=== PATIENT | female | born 1940 | race Caucasian/White ===

== ENCOUNTER 2017-07-13 10:00 | Outpatient (CLI) | payer MEDICARE, OTHER ==
[2017-07-13 13:03] LABS: CALCIUM 9.3 mg/dL (8.5-10.3); CREATININE 0.9 mg/dL (0.4-1.0); POTASSIUM 3.5 mmol/L (3.5-5.0)
== END 2017-07-13 10:01 | disposition home or self-care (01) ==
LOC: LAB.WCP 10:00
PROVIDERS: ATTEND Physician Assistant Medical
DX: R91.8 Other nonspecific abnormal finding of lung field (principal); Z51.81 Encounter for therapeutic drug level monitoring
CPT/HCPCS: 36415; 80048

== ENCOUNTER 2017-12-23 08:00 | Outpatient (CLI) | payer MEDICARE, OTHER | END 2017-12-23 08:01 | disposition home or self-care (01) | LOC: LAB.WCP 08:00 | PROVIDERS: ATTEND Family Medicine | DX: N39.0 Urinary tract infection, site not specified (principal) | CPT/HCPCS: 87086 ==

== ENCOUNTER 2018-01-14 08:00 | Outpatient (CLI) | payer MEDICARE, OTHER | END 2018-01-14 08:01 | LOC: LAB.R 08:00 | PROVIDERS: ATTEND Family Medicine | DX: N39.0 Urinary tract infection, site not specified (principal) | CPT/HCPCS: 87086 ==

== ENCOUNTER 2018-02-16 08:00 | Outpatient (CLI) | payer MEDICARE, OTHER | END 2018-02-16 08:01 | disposition home or self-care (01) | LOC: LAB.WCP 08:00 | PROVIDERS: ATTEND Family Medicine | DX: N39.0 Urinary tract infection, site not specified (principal) | CPT/HCPCS: 87086 ==

== ENCOUNTER 2019-01-31 09:26 | Outpatient (CLI) | payer MEDICARE, OTHER ==
[2019-01-31 12:20] LABS: ALBUMIN 4.2 g/dL (3.2-5.5); ALBUMIN/GLOBULIN RATIO 1.3 (1.0-2.2); ALKALINE PHOSPHATASE 69 IU/L (42-121); ALT ALANINE AMINOTRANSFERASE 20 IU/L (10-60); AST ASPARTATE AMINOTRANSFERASE 24 IU/L (10-42); BILIRUBIN,TOTAL 0.4 mg/dL (0.2-1.0); BUN - BLOOD UREA NITROGEN 15 mg/dL (6-20); CALCIUM 9.6 mg/dL (8.5-10.3); CARBON DIOXIDE - CO2 30 mmol/L (21-32); CHLORIDE 102 mmol/L (101-111); CHOL/HDL RATIO 3.3 (<4.4); CHOLESTEROL 227 mg/dL; CREATININE 0.8 mg/dL (0.4-1.0); GFR - MDRD 70 (>89); GLUCOSE 92 mg/dL (70-100); HDL CHOLESTEROL 69 mg/dL; LDL CHOLESTEROL,CALCULATED 120 mg/dL; LDL/HDL RATIO 1.7 (<4.4); SODIUM 141 mmol/L (135-145); TOTAL PROTEIN 7.5 g/dL (6.7-8.2); VLDL CHOLESTEROL 38 mg/dL
[2019-01-31 12:28] LABS: BASOPHILS # (AUTO) 0.1 10^3/uL (0.0-0.1); BASOPHILS % (AUTO) 2.5 %; EOSINOPHILS # (AUTO) 0.1 10^3/uL (0.0-0.7); EOSINOPHILS % (AUTO) 2.7 %; LYMPHOCYTES # (AUTO) 0.7 10^3/uL (1.5-3.5); LYMPHOCYTES % (AUTO) 12.5 %; MEAN CORPUSCULAR HEMOGLOBIN 30.6 pg (27.0-31.0); MEAN CORPUSCULAR HGB CONC 32.9 g/dL (32.0-36.0); MEAN CORPUSCULAR VOLUME 92.9 fL (81.0-99.0); MEAN PLATELET VOLUME 7.6 fL (7.9-10.8); MONOCYTES # (AUTO) 0.6 10^3/uL (0.0-1.0); MONOCYTES % (AUTO) 10.2 %; NEUTROPHILS % (AUTO) 72.1 %; PLT - PLATELET COUNT 316 10^3/uL (130-450); RED BLOOD COUNT 4.58 10^6/uL (4.20-5.40); RED CELL DISTRIBUTION WIDTH 13.1 % (12.0-15.0); WHITE BLOOD COUNT 5.6 x10^3/uL (4.8-10.8)
[2019-01-31 12:30] LABS: THYROID STIMULATING HORMONE 3.65 uIU/mL (0.34-5.60)
== END 2019-01-31 09:27 | disposition home or self-care (01) ==
LOC: LAB.WCP 09:26
PROVIDERS: ATTEND Family Medicine
DX: I10 Essential (primary) hypertension (principal); E53.8 Deficiency of other specified B group vitamins; Z51.81 Encounter for therapeutic drug level monitoring
CPT/HCPCS: 36415; 80053; 80061; 82607; 83721; 84443; 85025

== ENCOUNTER 2020-02-09 08:00 | Outpatient (CLI) | payer MEDICARE, OTHER ==
[2020-02-09 13:52] LABS: BASOPHILS # (AUTO) 0.1 10^3/uL (0.0-0.1); BASOPHILS % (AUTO) 1.2 %; EOSINOPHILS # (AUTO) 0.2 10^3/uL (0.0-0.7); EOSINOPHILS % (AUTO) 4.1 %; HGB - HEMOGLOBIN 13.2 g/dL (12.0-16.0); LYMPHOCYTES # (AUTO) 0.7 10^3/uL (1.5-3.5); LYMPHOCYTES % (AUTO) 13.8 %; MEAN CORPUSCULAR HEMOGLOBIN 29.5 pg (27.0-31.0); MEAN CORPUSCULAR HGB CONC 31.6 g/dL (32.0-36.0); MEAN CORPUSCULAR VOLUME 93.3 fL (81.0-99.0); MEAN PLATELET VOLUME 9.4 fL (7.9-10.8); MONOCYTES # (AUTO) 0.6 10^3/uL (0.0-1.0); MONOCYTES % (AUTO) 11.8 %; NEUTROPHILS # (AUTO) 3.4 10^3/uL (1.5-6.6); NEUTROPHILS % (AUTO) 68.7 %; PLT - PLATELET COUNT 287 10^3/uL (130-450); RED BLOOD COUNT 4.48 10^6/uL (4.20-5.40); RED CELL DISTRIBUTION WIDTH 13.5 % (12.0-15.0); WHITE BLOOD COUNT 4.9 x10^3/uL (4.8-10.8)
[2020-02-09 14:07] LABS: % IRON SATURATION 29 % (20-50); ALBUMIN 4.3 g/dL (3.2-5.5); ALBUMIN/GLOBULIN RATIO 1.3 (1.0-2.2); ALKALINE PHOSPHATASE 74 IU/L (42-121); ALT ALANINE AMINOTRANSFERASE 17 IU/L (10-60); AST ASPARTATE AMINOTRANSFERASE 25 IU/L (10-42); BILIRUBIN,TOTAL 0.7 mg/dL (0.2-1.0); BUN - BLOOD UREA NITROGEN 18 mg/dL (6-20); CALCIUM 9.7 mg/dL (8.5-10.3); CARBON DIOXIDE - CO2 26 mmol/L (21-32); CHLORIDE 104 mmol/L (101-111); CHOL/HDL RATIO 3.1 (<4.4); CHOLESTEROL 200 mg/dL; CREATININE 0.7 mg/dL (0.4-1.0); GLUCOSE 89 mg/dL (70-100); HDL CHOLESTEROL 64 mg/dL; IRON 104 ug/dL (28-170); LDL CHOLESTEROL,CALCULATED 106 mg/dL; LDL/HDL RATIO 1.7 (<4.4); SODIUM 139 mmol/L (135-145); TOTAL IRON BINDING CAPACITY 356 ug/dL (250-450); TOTAL PROTEIN 7.6 g/dL (6.7-8.2); TRANSFERRIN 254 mg/dL (192-382); VLDL CHOLESTEROL 30 mg/dL
[2020-02-09 14:08] LABS: FERRITIN 66.8 ng/mL (11.0-306.8)
== END 2020-02-09 23:59 | disposition home or self-care (01) ==
LOC: LAB.WCP 08:00
PROVIDERS: ATTEND Family Medicine
DX: I47.1 Supraventricular tachycardia (principal); R55 Syncope and collapse; D50.9 Iron deficiency anemia, unspecified; Z87.19 Personal history of other diseases of the digestive system; I10 Essential (primary) hypertension; E53.8 Deficiency of other specified B group vitamins
CPT/HCPCS: 36415; 80053; 80061; 82607; 82728; 83540; 83721; 84443; 84466; 85025

== ENCOUNTER 2020-02-24 15:34 | Outpatient (CLI) | payer MEDICARE, OTHER ==
--- NOTE | 2020-02-24 17:10 | Ultrasound Report ---
PROCEDURE: Head or Neck Soft Tissue INDICATIONS: THYROID NODULE TECHNIQUE: Real-time scanning was performed of the thyroid gland, with image documentation. COMPARISON: None FINDINGS: Right: Thyroid lobe measures 4.3 x 2.3 x 1.8 cm, and is homogeneous in echotexture. Left: Thyroid lobe measures 4.9 x 2.8 x 2.9 cm, and is homogenous in echotexture. Isthmus: 2 mm thick. Nodule number: One Location: Right lateral lobe Size: 1.1 x 0.5 x 1.1 cm. Composition: Partially cystic Echogenicity: Hypoechoic Shape: wider than tall. Margins: Irregular Echogenic foci: None Total points: 2 ACR TI-RADS category: 2 Nodule number: Two Location: Left lobe Size: 3.9 x 2.4 x 2.4 cm. Composition: Solid Echogenicity: Hypoechoic Shape: wider than tall. Margins: Smooth Echogenic foci: Punctate Total points: 7 ACR TI-RADS category: 5 Nodule number: 3 Location: Isthmus Size: 0.6 x 0.2 x 0.6 cm. Composition: Solid Echogenicity: Hypoechoic Shape: wider than tall. Margins: Smooth Echogenic foci: Punctate Total points: 7 ACR TI-RADS category: 5 IMPRESSION: 1. Nodule two meets criteria for fine-needle aspiration. 2. Nodule three meets criteria for interval follow-up every year for 5 years. 3. Nodule one no further follow-up is recommended. ACR TI-RADS definitions and recommendations: TI-RADS 1 (benign): 0 points. FNA not needed. TI-RADS 2 (not suspicious): 2 points. FNA not needed. TI-RADS 3 (mildly suspicious): 3 points. ? FNA if 2.5 cm or larger, follow up if 1.5 cm or larger (at 1, 3, and 5 years). TI-RADS 4 (moderately suspicious): 4-6 points. ? FNA if 1.5 cm or larger, follow up if 1 cm or larger (at 1, 2, 3, and 5 years). TI-RADS 5 (highly suspicious): 7 points or more. ? FNA if 1 cm or larger, follow up if 0.5 cm or larger (every year for 5 years). Reviewed by: Jaymie Milligan MD on 02/24/2020 5:08 PM PDT Approved by: Jaymie Milligan MD on 02/24/2020 5:08 PM PDT Station ID: [id number]
== END 2020-02-24 15:35 | disposition home or self-care (01) ==
LOC: DI 15:34
PROVIDERS: ATTEND Family Medicine
DX: E04.2 Nontoxic multinodular goiter (principal)
CPT/HCPCS: 76536

== ENCOUNTER 2020-06-13 14:48 | Outpatient (CLI) | payer MEDICARE, OTHER ==
[2020-06-13 19:14] LABS: THYROID STIMULATING HORMONE 45.37 uIU/mL (0.34-5.60)
[2020-06-13 19:15] LABS: FREE T3 2.08 pg/mL (2.5-3.9)
[2020-06-13 19:19] LABS: FREE T4 (FREE THYROXINE) 0.49 ng/dL (0.58-1.64)
== END 2020-06-13 23:59 | disposition home or self-care (01) ==
LOC: LAB.WCP 14:48
PROVIDERS: ATTEND Family Medicine
DX: C73 Malignant neoplasm of thyroid gland (principal)
CPT/HCPCS: 36415; 84439; 84443; 84481

== ENCOUNTER 2020-07-19 08:00 | Outpatient (CLI) | payer MEDICARE, OTHER ==
[2020-07-19 19:18] LABS: FREE T3 1.97 pg/mL (2.5-3.9)
[2020-07-19 19:19] LABS: FREE T4 (FREE THYROXINE) 0.69 ng/dL (0.58-1.64)
== END 2020-07-19 23:59 | disposition home or self-care (01) ==
LOC: LAB.WCP 08:00
PROVIDERS: ATTEND Family Medicine
DX: E89.0 Postprocedural hypothyroidism (principal)
CPT/HCPCS: 36415; 84439; 84481

== ENCOUNTER → 2020-11-08 | Outpatient (CLI) | payer MEDICARE, OTHER ==
[2020-11-08 13:49] LABS: THYROID STIMULATING HORMONE 49.93 uIU/mL (0.34-5.60)
[2020-11-08 13:51] LABS: FREE T3 2.84 pg/mL (2.5-3.9)
[2020-11-08 13:52] LABS: FREE T4 (FREE THYROXINE) 0.65 ng/dL (0.58-1.64)
== END ==
LOC: LAB.WCP 08:00
PROVIDERS: ATTEND Family Medicine
DX: E89.0 Postprocedural hypothyroidism (principal)
CPT/HCPCS: 36415; 84439; 84443; 84481

== ENCOUNTER 2020-11-29 12:24 | Outpatient (CLI) | payer MEDICARE, OTHER ==
--- NOTE | 2020-11-29 15:35 | XRAY Report ---
PROCEDURE: Hip w/Pelvis 1V RT INDICATIONS: RT HIP PAIN TECHNIQUE: AP pelvis with lateral view(s) of the bilateral hip(s). COMPARISON: None. FINDINGS: Bones: No fractures or dislocations. Pelvic ring appears intact. No suspicious bony lesions. 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 Minimal periarticular osteophytes. No erosions. Soft tissues: The visualized bowel gas pattern is normal. No suspicious soft tissue calcifications. 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 Reviewed by: Jaymie Milligan MD on 11/29/2020 3:34 PM PDT Approved by: Jaymie Milligan MD on 11/29/2020 3:34 PM PDT Station ID: [id number]
== END 2020-11-29 12:25 | disposition home or self-care (01) ==
LOC: DI.N 12:24
PROVIDERS: ATTEND Family Medicine
DX: M25.551 Pain in right hip (principal); M16.0 Bilateral primary osteoarthritis of hip

== ENCOUNTER 2021-03-11 08:52 | Emergency (ER) | payer MEDICARE, OTHER ==
[2021-03-11] MEDS ORDERED: SILVER NITRATE APPLICATOR TOP STA (09:11)
[2021-03-11] MEDS ORDERED: OXYMETAZOLINE HCL 100 SPRAYS BOTTLE NAS STA (09:11)
[2021-03-11] MEDS ORDERED: BACITRACIN ZINC OINT 1 PACKET TOP STA (10:03)
--- NOTE | 2021-03-11 11:33 | ED Physician Documentation ---
History of Present Illness - Stated complaint Stated Complaint: NOSE BLEED - Chief complaint Chief Complaint: Heent - Additonal information Additional information: 80-year-old woman not on blood thinners presents with spontaneous epistaxis this morning and passage of multiple blood clots from the nose. She was seen at urgent care but they referred her in because they do not have the appropriate equipment. Patient's nosebleed has stopped at this time. Denies traumatic injury, instrumentation, or nose picking. Review of Systems Nose: reports: Epistaxis PD PAST MEDICAL HISTORY - Past Medical History Cardiovascular: Hypertension - Past Surgical History General: Bowel surgery - Present Medications Home Medications: Ambulatory Orders Medication Instructions Recorded Confirmed Levothyroxine [Synthroid] 1 tab PO DAILY 03/11/21 03/11/21 Losartan Potassium 1 tab PO DAILY 03/11/21 03/11/21 Metoprolol Succinate [Toprol Xl] 1 tab PO BID 03/11/21 03/11/21 Tiotropium [place] [Spiriva] 1 - 2 puffs PO DAILY 03/11/21 03/11/21 - Allergies Allergies/Adverse Reactions: Allergies Allergy/AdvReac Type Severity Reaction Status Date / Time No Known Drug Allergies Allergy Verified 03/11/21 09:07 - Social History Does the pt smoke?: No Smoking Status: Never smoker Does the pt drink ETOH?: Yes PD ED PE NORMAL - Vitals Vital signs reviewed: Yes - General General: Alert and oriented X 3, No acute distress, Well developed/nourished - HEENT HEENT: Atraumatic, PERRL, EOMI, Other (Left nare with large clot to medial aspect. Right nare clear.) - Derm Derm: Normal color, Warm and dry - Neuro Neuro: Alert and oriented X 3 - Psych Psych: Normal mood, Normal affect Results - Vitals Vitals: Vital Signs - 24 hr 03/11/21 03/11/21 03/11/21 09:02 09:26 10:34 Temperature 36.0 C L Heart Rate 90 77 Respiratory 16 18 Rate Blood Pressure 170/103 H 170/103 H 146/121 H O2 Saturation 92 94 03/11/21 03/11/21 11:08 11:39 Temperature 36.6 C Heart Rate 71 Respiratory 16 18 Rate Blood Pressure 154/94 H 174/96 H O2 Saturation 93 Oxygen O2 Source Room air Procedures - General procedure General procedure: Silver nitrate cautery applied to L nare after oxymetazoline spray. Patient had 1 area of anterior bleeding that was stopped. EBL 2 mL. Patient tolerated well. Bacitracin applied. PD MEDICAL DECISION MAKING - ED course ED course: 80-year-old woman presented with epistaxis that resolved after oxymetazoline spray and silver nitrate cautery. Return precautions given. She will follow up with her primary doctor. Departure - Departure Disposition: 01 Home, Self Care Clinical Impression: Epistaxis Condition: Good Instructions: Nosebleed Comments: You are seen in the emergency department for nosebleed. We applied silver nitrate cautery and the bleeding stopped. Return to the emergency department if it recurs. Follow-up with your primary doctor. Discharge Date/Time: 03/11/21 11:41
[2021-03-11 11:40] VITALS: BP 174/96
== END 2021-03-11 11:41 | disposition home or self-care (01) ==
LOC: ED 08:52
DX: R04.0 Epistaxis (principal); I10 Essential (primary) hypertension
CPT/HCPCS: 30901; 99281; 99282; A9270

== ENCOUNTER 2021-04-07 10:47 | Emergency (ER) | payer MEDICARE, OTHER ==
[2021-04-07 11:01] VITALS: BP 157/102
[2021-04-07] MEDS ORDERED: TRANEXAMIC ACID 1,000 MG/10 ML VIAL NAS STA (12:18)
[2021-04-07] MEDS ORDERED: OXYMETAZOLINE HCL 100 SPRAYS BOTTLE NAS STA (12:18)
--- NOTE | 2021-04-07 12:28 | ED Physician Documentation ---
History of Present Illness - Stated complaint Stated Complaint: BLOODY NOSE - Chief complaint Chief Complaint: Heent - History obtained from History obtained from: Patient - History of Present Illness Timing: Yesterday Pain level max: 0 Pain level now: 0 - Additonal information Additional information: 80-year-old female presents to the emergency department complaining of intermittent nosebleeds over the past 6 months. She has had blood work done without any suspicious findings. She states that this nosebleed started today, left nare. She states she did have a episode of epistaxis cauterized a few months ago. Has not followed up with ENT. She does have a history of hypertension, has not changed her medications recently. No trauma. Better with pressure, nothing makes it worse. Review of Systems Constitutional: denies: Fever, Chills Respiratory: denies: Cough GI: denies: Nausea, Vomiting Skin: denies: Rash Musculoskeletal: denies: Neck pain, Back pain Neurologic: denies: Headache PD PAST MEDICAL HISTORY - Past Medical History Cardiovascular: Hypertension - Past Surgical History General: Bowel surgery - Present Medications Home Medications: Ambulatory Orders Medication Instructions Recorded Confirmed Levothyroxine [Synthroid] 1 tab PO DAILY 03/11/21 03/11/21 Losartan Potassium 1 tab PO DAILY 03/11/21 03/11/21 Metoprolol Succinate [Toprol Xl] 1 tab PO BID 03/11/21 03/11/21 Tiotropium [place] [Spiriva] 1 - 2 puffs PO DAILY 03/11/21 03/11/21 Oxymetazoline HCl [Afrin] 1 spray NS BID PRN #15 ml 04/07/21 - Allergies Allergies/Adverse Reactions: Allergies Allergy/AdvReac Type Severity Reaction Status Date / Time No Known Drug Allergies Allergy Verified 04/07/21 11:01 - Social History Does the pt smoke?: No Smoking Status: Never smoker Does the pt drink ETOH?: Yes PD ED PE NORMAL - Vitals Vital signs reviewed: Yes - General General: Alert and oriented X 3, No acute distress - HEENT HEENT: Moist mucous membranes, Other (L nare - mild dried blood. no visualized bleeding. ) - Neck Neck: Supple, no meningeal sign - Cardiac Cardiac: RRR - Respiratory Respiratory: No respiratory distress, Clear bilaterally - Derm Derm: Warm and dry - Neuro Neuro: Alert and oriented X 3 Results - Vitals Vitals: Vital Signs - 24 hr 04/07/21 10:55 Temperature 36.6 C Heart Rate 84 Respiratory 18 Rate Blood Pressure 157/102 H O2 Saturation 96 Oxygen O2 Source Room air Procedures - Epistaxis Site: Left Preparation: Clots removed, Afrin, Other (txa) Other: Observed - no bleeding, Pt tolerated well PD MEDICAL DECISION MAKING - ED course Complexity details: considered differential, d/w patient ED course: 80-year-old female with epistaxis today. Resolved in the emergency department. Afrin instilled in the nare as well as TXA. No visible source of bleeding to cauterize. No indication for packing at this time. We will have her follow-up with ENT as she has had recurrent epistaxis. Patient counseled regarding signs and symptoms for which I believe and urgent re-evaluation would be necessary. Patient with good understanding of and agreement to plan and is comfortable going home at this time This document was made in part using voice recognition software. While efforts are made to proofread this document, sound alike and grammatical errors may occur. Departure - Departure Disposition: 01 Home, Self Care Clinical Impression: Epistaxis Condition: Good Instructions: ED Nosebleed Follow-Up: Erick Cooper DO [Primary Care Provider] - [facility] [Provider Group] Prescriptions: Oxymetazoline HCl [Afrin] 1 spray NS BID PRN #15 ml PRN Reason: epsitaxis Comments: Please follow-up with ENT for further evaluation. Make sure your blood pressure is well controlled. You can try applying a small amount of Vaseline to the inside of each nostril as well. If the bleeding recurs, apply the clamp for 15 minutes before rechecking. Discharge Date/Time: 04/07/21 13:15
== END 2021-04-07 13:15 | disposition home or self-care (01) ==
LOC: ED 10:47
DX: R04.0 Epistaxis (principal); I10 Essential (primary) hypertension
CPT/HCPCS: 30901; 99282; 99284; A9270

== ENCOUNTER 2021-05-13 08:00 | Outpatient (CLI) | payer MEDICARE, OTHER ==
[2021-05-13 17:58] LABS: BASOPHILS # (AUTO) 0.1 10^3/uL (0.0-0.1); BASOPHILS % (AUTO) 1.2 %; EOSINOPHILS # (AUTO) 0.1 10^3/uL (0.0-0.7); EOSINOPHILS % (AUTO) 2.3 %; HCT - HEMATOCRIT 41.7 % (37.0-47.0); HGB - HEMOGLOBIN 13.5 g/dL (12.0-16.0); LYMPHOCYTES # (AUTO) 0.7 10^3/uL (1.5-3.5); LYMPHOCYTES % (AUTO) 11.3 %; MEAN CORPUSCULAR HEMOGLOBIN 32.1 pg (27.0-31.0); MEAN CORPUSCULAR HGB CONC 32.4 g/dL (32.0-36.0); MEAN CORPUSCULAR VOLUME 99.3 fL (81.0-99.0); MEAN PLATELET VOLUME 9.3 fL (7.9-10.8); MONOCYTES # (AUTO) 0.5 10^3/uL (0.0-1.0); MONOCYTES % (AUTO) 9.1 %; NEUTROPHILS # (AUTO) 4.3 10^3/uL (1.5-6.6); NEUTROPHILS % (AUTO) 75.6 %; PLT - PLATELET COUNT 308 10^3/uL (130-450); RED CELL DISTRIBUTION WIDTH 13.1 % (12.0-15.0); WHITE BLOOD COUNT 5.7 x10^3/uL (4.8-10.8)
[2021-05-13 18:26] LABS: ALBUMIN 4.3 g/dL (3.2-5.5); ALBUMIN/GLOBULIN RATIO 1.3 (1.0-2.2); BILIRUBIN,TOTAL 0.6 mg/dL (0.2-1.0); CALCIUM 9.3 mg/dL (8.5-10.3); CREATININE 0.9 mg/dL (0.4-1.0); POTASSIUM 4.3 mmol/L (3.5-5.0); TOTAL PROTEIN 7.6 g/dL (6.7-8.2)
[2021-05-13 18:27] LABS: THYROID STIMULATING HORMONE 23.13 uIU/mL (0.34-5.60)
[2021-05-13 18:29] LABS: FREE T3 2.62 pg/mL (2.5-3.9); FREE T4 (FREE THYROXINE) 0.77 ng/dL (0.58-1.64)
[2021-05-15 15:11] LABS: THYROID PEROXIDASE ANTIBODIES 1 IU/mL (<9)
== END 2021-05-13 23:59 | disposition home or self-care (01) ==
LOC: LAB.WCP 08:00
PROVIDERS: ATTEND Family Medicine
DX: I10 Essential (primary) hypertension (principal); E53.8 Deficiency of other specified B group vitamins; C73 Malignant neoplasm of thyroid gland
CPT/HCPCS: 36415; 80053; 82607; 84439; 84443; 84481; 85025; 86376; 86800

== ENCOUNTER 2021-08-12 08:00 | Outpatient (CLI) | payer MEDICARE, OTHER ==
[2021-08-12 12:27] LABS: ALBUMIN/GLOBULIN RATIO 1.3 (1.0-2.2); BILIRUBIN,TOTAL 0.7 mg/dL (0.2-1.0); CALCIUM 9.4 mg/dL (8.5-10.3); CREATININE 0.8 mg/dL (0.4-1.0); POTASSIUM 4.3 mmol/L (3.5-5.0); TOTAL PROTEIN 7.1 g/dL (6.7-8.2)
[2021-08-12 12:35] LABS: THYROID STIMULATING HORMONE 14.33 uIU/mL (0.34-5.60)
[2021-08-12 13:11] LABS: FREE T4 (FREE THYROXINE) 1.02 ng/dL (0.58-1.64)
== END 2021-08-12 23:59 ==
LOC: LAB.WCP 08:00
PROVIDERS: ATTEND Family Medicine
DX: C73 Malignant neoplasm of thyroid gland (principal); I10 Essential (primary) hypertension
CPT/HCPCS: 36415; 80053; 84439; 84443

== ENCOUNTER 2022-06-16 09:19 | Outpatient (CLI) | payer MEDICARE, OTHER ==
[2022-06-16 12:32] LABS: BASOPHILS # (AUTO) 0.1 10^3/uL (0.0-0.1); BASOPHILS % (AUTO) 1.3 %; EOSINOPHILS # (AUTO) 0.2 10^3/uL (0.0-0.7); EOSINOPHILS % (AUTO) 2.3 %; HCT - HEMATOCRIT 42.9 % (37.0-47.0); HGB - HEMOGLOBIN 14.4 g/dL (12.0-16.0); LYMPHOCYTES # (AUTO) 0.7 10^3/uL (1.5-3.5); MEAN CORPUSCULAR HGB CONC 33.6 g/dL (32.0-36.0); MEAN CORPUSCULAR VOLUME 92.3 fL (81.0-99.0); MEAN PLATELET VOLUME 9.3 fL (7.9-10.8); MONOCYTES # (AUTO) 0.8 10^3/uL (0.0-1.0); NEUTROPHILS # (AUTO) 6.2 10^3/uL (1.5-6.6); NEUTROPHILS % (AUTO) 77.1 %; PLT - PLATELET COUNT 372 10^3/uL (130-450); RED BLOOD COUNT 4.65 10^6/uL (4.20-5.40); RED CELL DISTRIBUTION WIDTH 12.5 % (12.0-15.0)
[2022-06-16 13:23] LABS: THYROID STIMULATING HORMONE 1.12 uIU/mL (0.34-5.60)
[2022-06-16 13:25] LABS: ALBUMIN 4.1 g/dL (3.2-5.5); ALBUMIN/GLOBULIN RATIO 1.2 (1.0-2.2); ALKALINE PHOSPHATASE 64 IU/L (42-121); ALT ALANINE AMINOTRANSFERASE 19 IU/L (10-60); AST ASPARTATE AMINOTRANSFERASE 22 IU/L (10-42); BILIRUBIN,TOTAL 0.5 mg/dL (0.2-1.0); BUN - BLOOD UREA NITROGEN 12 mg/dL (6-20); CARBON DIOXIDE - CO2 29 mmol/L (21-32); CHLORIDE 99 mmol/L (101-111); CHOL/HDL RATIO 2.8 (<4.4); CHOLESTEROL 178 mg/dL; CREATININE 0.9 mg/dL (0.4-1.0); GFR - MDRD 60 (>89); GLUCOSE 98 mg/dL (70-100); HDL CHOLESTEROL 64 mg/dL; LDL CHOLESTEROL,CALCULATED 82 mg/dL; LDL/HDL RATIO 1.3 (<4.4); POTASSIUM 4.1 mmol/L (3.5-5.0); SODIUM 139 mmol/L (135-145); TOTAL PROTEIN 7.4 g/dL (6.7-8.2); TRIGLYCERIDES 160 mg/dL; VLDL CHOLESTEROL 32 mg/dL
[2022-06-16 13:26] LABS: FREE T4 (FREE THYROXINE) 1.2 ng/dL (0.58-1.64)
== END 2022-06-16 09:20 | disposition home or self-care (01) ==
LOC: LAB.N 09:19
PROVIDERS: ATTEND Internal Medicine
DX: I10 Essential (primary) hypertension (principal); E53.8 Deficiency of other specified B group vitamins; C73 Malignant neoplasm of thyroid gland
CPT/HCPCS: 36415; 80053; 80061; 82607; 83721; 84439; 84443; 85025; 86800

== ENCOUNTER 2022-08-22 10:16 | Outpatient (CLI) | payer MEDICARE, OTHER ==
[2022-08-22 11:05] LABS: THYROID STIMULATING HORMONE 2.23 uIU/mL (0.34-5.60)
[2022-08-22 11:07] LABS: FREE T4 (FREE THYROXINE) 1.11 ng/dL (0.58-1.64)
== END 2022-08-22 10:17 | disposition home or self-care (01) ==
LOC: LAB 10:16
PROVIDERS: ATTEND Internal Medicine
DX: C73 Malignant neoplasm of thyroid gland (principal)
CPT/HCPCS: 36415; 81599; 84432; 84439; 84443; 86800

== ENCOUNTER 2022-12-03 08:37 | Outpatient (CLI) | payer MEDICARE, OTHER ==
[2022-12-03 09:00] LABS: BASOPHILS # (AUTO) 0.1 10^3/uL (0.0-0.1); BASOPHILS % (AUTO) 1.3 %; EOSINOPHILS # (AUTO) 0.3 10^3/uL (0.0-0.7); EOSINOPHILS % (AUTO) 5.4 %; HGB - HEMOGLOBIN 14.3 g/dL (12.0-16.0); LYMPHOCYTES # (AUTO) 0.8 10^3/uL (1.5-3.5); LYMPHOCYTES % (AUTO) 12.8 %; MEAN CORPUSCULAR HEMOGLOBIN 30.2 pg (27.0-31.0); MEAN CORPUSCULAR HGB CONC 33.3 g/dL (32.0-36.0); MEAN CORPUSCULAR VOLUME 90.7 fL (81.0-99.0); MONOCYTES # (AUTO) 0.6 10^3/uL (0.0-1.0); MONOCYTES % (AUTO) 10.1 %; NEUTROPHILS # (AUTO) 4.4 10^3/uL (1.5-6.6); NEUTROPHILS % (AUTO) 70.1 %; PLT - PLATELET COUNT 306 10^3/uL (130-450); RED BLOOD COUNT 4.74 10^6/uL (4.20-5.40); RED CELL DISTRIBUTION WIDTH 12.3 % (12.0-15.0); WHITE BLOOD COUNT 6.3 x10^3/uL (4.8-10.8)
[2022-12-03 09:15] LABS: CALCIUM 9.3 mg/dL (8.5-10.3); CREATININE 0.7 mg/dL (0.4-1.0); POTASSIUM 3.4 mmol/L (3.5-5.0)
[2022-12-03 09:37] LABS: THYROID STIMULATING HORMONE 0.22 uIU/mL (0.34-5.60)
[2022-12-03 09:40] LABS: FREE T4 (FREE THYROXINE) 1.66 ng/dL (0.58-1.64)
== END 2022-12-03 08:38 | disposition home or self-care (01) ==
LOC: LAB 08:37
PROVIDERS: ATTEND Internal Medicine
DX: C73 Malignant neoplasm of thyroid gland (principal); I10 Essential (primary) hypertension; J44.9 Chronic obstructive pulmonary disease, unspecified; R91.8 Other nonspecific abnormal finding of lung field
CPT/HCPCS: 36415; 80048; 81599; 84432; 84439; 84443; 85025; 86800

== ENCOUNTER 2022-12-24 09:23 | Outpatient (CLI) | payer MEDICARE, OTHER ==
[2022-12-24] MEDS ORDERED: ALBUTEROL 1 PUFF INH STA (17:16)
== END 2022-12-24 09:24 | disposition home or self-care (01) ==
LOC: RT 09:23
PROVIDERS: ATTEND Family Medicine
DX: J44.9 Chronic obstructive pulmonary disease, unspecified (principal); R91.8 Other nonspecific abnormal finding of lung field
CPT/HCPCS: 94060; 94729

== ENCOUNTER 2023-05-15 08:22 | Outpatient (CLI) | payer MEDICARE, OTHER ==
[2023-05-15 08:39] LABS: BASOPHILS # (AUTO) 0.1 10^3/uL (0.0-0.1); BASOPHILS % (AUTO) 1.4 %; EOSINOPHILS # (AUTO) 0.2 10^3/uL (0.0-0.7); EOSINOPHILS % (AUTO) 2.9 %; HCT - HEMATOCRIT 42.6 % (37.0-47.0); HGB - HEMOGLOBIN 14.1 g/dL (12.0-16.0); LYMPHOCYTES # (AUTO) 0.8 10^3/uL (1.5-3.5); LYMPHOCYTES % (AUTO) 10.8 %; MEAN CORPUSCULAR HEMOGLOBIN 30.4 pg (27.0-31.0); MEAN CORPUSCULAR HGB CONC 33.1 g/dL (32.0-36.0); MEAN CORPUSCULAR VOLUME 91.8 fL (81.0-99.0); MEAN PLATELET VOLUME 8.6 fL (7.9-10.8); MONOCYTES # (AUTO) 0.6 10^3/uL (0.0-1.0); MONOCYTES % (AUTO) 8.4 %; NEUTROPHILS # (AUTO) 5.6 10^3/uL (1.5-6.6); NEUTROPHILS % (AUTO) 76.2 %; PLT - PLATELET COUNT 347 10^3/uL (130-450); RED BLOOD COUNT 4.64 10^6/uL (4.20-5.40); RED CELL DISTRIBUTION WIDTH 12.8 % (12.0-15.0); WHITE BLOOD COUNT 7.3 x10^3/uL (4.8-10.8)
[2023-05-15 09:03] LABS: ALBUMIN 4.1 g/dL (3.2-5.5); ALBUMIN/GLOBULIN RATIO 1.3 (1.0-2.2); BILIRUBIN,TOTAL 0.4 mg/dL (0.2-1.0); CALCIUM 9.9 mg/dL (8.5-10.3); CREATININE 0.7 mg/dL (0.6-1.3); POTASSIUM 3.9 mmol/L (3.5-4.5); TOTAL PROTEIN 7.2 g/dL (6.4-8.9)
[2023-05-15 09:10] LABS: THYROID STIMULATING HORMONE 0.11 uIU/mL (0.34-5.60)
[2023-05-17 14:08] LABS: THYROGLOBULIN ANTIBODY 1076.2 IU/mL (0.0-0.9)
== END 2023-05-15 08:23 | disposition home or self-care (01) ==
LOC: LAB 08:22
PROVIDERS: ATTEND Internal Medicine
DX: A31.0 Pulmonary mycobacterial infection (principal); J47.9 Bronchiectasis, uncomplicated; C73 Malignant neoplasm of thyroid gland; I10 Essential (primary) hypertension
CPT/HCPCS: 36415; 80053; 82248; 84443; 84481; 85025; 86376; 86800

== ENCOUNTER 2023-07-08 08:54 | Outpatient (CLI) | payer MEDICARE, OTHER ==
[2023-07-08 09:32] LABS: ALBUMIN 4.2 g/dL (3.2-5.5); ALKALINE PHOSPHATASE 75 IU/L (42-121); ALT ALANINE AMINOTRANSFERASE 10 IU/L (10-60); AST ASPARTATE AMINOTRANSFERASE 16 IU/L (10-42); BILIRUBIN,DIRECT < 0.10 mg/dL (0.03-0.18); BILIRUBIN,TOTAL 0.4 mg/dL (0.2-1.0); TOTAL PROTEIN 7.2 g/dL (6.4-8.9)
== END 2023-07-08 08:55 | disposition home or self-care (01) ==
LOC: LAB 08:54
PROVIDERS: ATTEND Internal Medicine Pulmonary Disease
DX: A31.0 Pulmonary mycobacterial infection (principal); J47.9 Bronchiectasis, uncomplicated
CPT/HCPCS: 36415; 80076

== ENCOUNTER 2023-09-17 11:52 | Outpatient (CLI) | payer MEDICARE, OTHER ==
[2023-09-17 12:51] LABS: ALBUMIN 4.4 g/dL (3.2-5.5); BILIRUBIN,DIRECT 0.15 mg/dL (0.03-0.18); BILIRUBIN,TOTAL 0.4 mg/dL (0.2-1.0); TOTAL PROTEIN 7.5 g/dL (6.4-8.9)
--- NOTE | 2023-09-17 19:45 | XRAY Report ---
PROCEDURE: Chest 2V INDICATIONS: ACUTE BRONCHITIS TECHNIQUE: 2 views of the chest were acquired. COMPARISON: Chest radiograph on April 15, 2016. FINDINGS: Surgical changes and devices: Left chest wall pacer with pacemaker leads in expected positions. Lungs and pleura: No pleural effusions or pneumothorax. Mild bilateral perihilar bronchial wall thic kening. Lungs are otherwise. Mediastinum: Mediastinal contours appear normal. Heart size is normal. Bones and chest wall: No suspicious bony lesions. Overlying soft tissues appear unremarkable. IMPRESSION: Mild bilateral perihilar bronchial wall thickening suggestive of reactive airway disease and/or viral pneumonia. No focal pulmonary consolidation. Reviewed by: Syed Lynch MD on 09/17/2023 7:44 PM PST Approved by: Syed Lynch MD on 09/17/2023 7:44 PM PST Station ID: [id number]
== END 2023-09-17 11:53 | disposition home or self-care (01) ==
LOC: DI 11:52
PROVIDERS: ATTEND Internal Medicine
DX: J20.9 Acute bronchitis, unspecified (principal); A31.0 Pulmonary mycobacterial infection; J47.9 Bronchiectasis, uncomplicated
CPT/HCPCS: 36415; 80076

== ENCOUNTER 2023-11-23 09:51 | Outpatient (CLI) | payer MEDICARE, OTHER ==
[2023-11-23 10:26] LABS: ALBUMIN 4.6 g/dL (3.2-5.5); ALBUMIN/GLOBULIN RATIO 1.4 (1.0-2.2); BILIRUBIN,DIRECT 0.26 mg/dL (0.03-0.18); BILIRUBIN,TOTAL 0.9 mg/dL (0.2-1.0); CALCIUM 10.8 mg/dL (8.5-10.3); CREATININE 0.8 mg/dL (0.6-1.3)
[2023-11-23 10:42] LABS: THYROID STIMULATING HORMONE 0.23 uIU/mL (0.34-5.60)
== END 2023-11-23 09:52 | disposition home or self-care (01) ==
LOC: LAB 09:51
PROVIDERS: ATTEND Internal Medicine
DX: C73 Malignant neoplasm of thyroid gland (principal); J47.9 Bronchiectasis, uncomplicated; A31.0 Pulmonary mycobacterial infection
CPT/HCPCS: 36415; 80053; 82248; 84439; 84443; 84481; 86800

== ENCOUNTER 2023-12-01 11:27 | Outpatient (CLI) | payer MEDICARE, OTHER | END 2023-12-01 11:28 | disposition home or self-care (01) | LOC: LAB 11:27 | PROVIDERS: ATTEND Internal Medicine | DX: C73 Malignant neoplasm of thyroid gland (principal) | CPT/HCPCS: 81599 ==

== ENCOUNTER 2023-12-01 11:42 | Outpatient (CLI) | payer MEDICARE, OTHER ==
--- NOTE | 2023-12-01 21:32 | Ultrasound Report ---
PROCEDURE: Soft Tissue Head or Neck INDICATIONS: PAPILLARY THYROID CARCINOMA TECHNIQUE: Real-time scanning was performed of the thyroid gland, with image documentation. COMPARISON: Report from a CT scan from [facility] that was dated 12/19/2022, which demonstrated p revious thyroidectomy and several enhancing nodules in the left thyroid bed, measuring 10 x 9 mm in g reatest axial dimension with a craniocaudal extent 2.4 cm. FINDINGS: Right: Surgically excised Left: Surgically excised Surgically excised In the left thyroid bed, multiple residual or recurrent nodules of thyroid tissue are noted. 4 nodule s are described: Nodule 1: Superior aspect of left thyroid bed, 0.7 x 0.6 x 0.6 cm. 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 Comment: Consider CT neck with contrast which could be obtained and compared to the prior CT of the n sergey from [facility], which is not currently available for review. This would allow direct compar dar between the same type of imaging study over the past 12 months. Reviewed by: Sea Hamlin MD on 12/01/2023 9:31 PM PDT Approved by: Sea Hamlin MD on 12/01/2023 9:31 PM PDT Station ID: [id number]
== END 2023-12-01 11:43 | disposition home or self-care (01) ==
LOC: DI 11:42
PROVIDERS: ATTEND Internal Medicine
DX: C73 Malignant neoplasm of thyroid gland (principal)

== ENCOUNTER 2024-04-01 10:12 | Outpatient (CLI) | payer MEDICARE, OTHER ==
[2024-04-01 10:42] LABS: ALBUMIN 4.5 g/dL (3.2-5.5); BILIRUBIN,DIRECT 0.12 mg/dL (0.03-0.18); BILIRUBIN,TOTAL 0.5 mg/dL (0.2-1.0); TOTAL PROTEIN 7.6 g/dL (6.4-8.9)
== END 2024-04-01 10:13 | disposition home or self-care (01) ==
LOC: LAB 10:12
PROVIDERS: ATTEND Internal Medicine Pulmonary Disease
DX: J47.9 Bronchiectasis, uncomplicated (principal); A31.0 Pulmonary mycobacterial infection
CPT/HCPCS: 36415; 80076